=== PATIENT | male | born 1955 | race Caucasian/White ===

== ENCOUNTER 2017-08-11 20:52 | Emergency (ER) | payer OTHER ==
[~2017-08-11] VITALS: Ht 172.7 cm; Wt 49.9 kg
[~2017-08-11 20:52] MED LIST: BACL20TA PO; DIAZ5TAB PO; FENT1PAT3 TOP; HYDR-548 PO; TRAM50TA2 PO
[2017-08-11] MEDS ORDERED: SULFAMETH/TRIMETH 800/160 MG TABLET PO ONE (21:45)
[2017-08-11] MEDS ORDERED: CLINDAMYCIN HCL 150 MG CAPSULE PO ONE (21:45)
--- NOTE | 2017-08-11 21:47 | NUR ---
Patient discharged to home in stable conditon. Written and verbal after care instructions given. Patient verbalizes understanding of instructions.
[2017-08-11] MEDS ORDERED: CLINDAMYCIN HCL 300 MG CAPSULE ONE (21:57)
[2017-08-11] MEDS ORDERED: SULFAMETH/TRIMETH 800/160 MG TABLET ONE (21:57)
== END 2017-08-11 21:49 | disposition home or self-care (01) ==
LOC: ER 20:53
DX: L03.115 Cellulitis of right lower limb (principal); G82.50 Quadriplegia, unspecified
CPT/HCPCS: A4663

== ENCOUNTER 2018-10-21 14:05 | Emergency (ER) | payer OTHER ==
[~2018-10-21] VITALS: Ht 172.7 cm; Wt 50.8 kg
[~2018-10-21 14:05] MED LIST changes: -DIAZ5TAB PO; +HYDR-4354 PO; -HYDR-548 PO; -TRAM50TA2 PO
--- NOTE | 2018-10-21 15:26 | NUR ---
PT WAS EVALUATED BY DR FORTE. PT WAS D/C'd TO HOMED/C INSTRUCTIONS GIVEN TO THE PT.
[2018-10-21 15:27] VITALS: BP 136/75
== END 2018-10-21 15:28 | disposition home or self-care (01) ==
LOC: ER 14:05
DX: L89.309 Pressure ulcer of unspecified buttock, unspecified stage (principal); Z79.891 Long term (current) use of opiate analgesic; Z79.899 Other long term (current) drug therapy
CPT/HCPCS: A4663

== ENCOUNTER 2018-11-11 22:30 | Emergency (ER) | payer OTHER ==
[~2018-11-11] VITALS: Ht 172.7 cm; Wt 52.2 kg
--- NOTE | 2018-11-11 22:47 | NUR ---
Patient non-ambulatory, on w/c. AAOX4. Speech clear, speaks in complete sentences. Patient came in with c/o swelling in the LLE x 5 days s/p having a superficial break in the skin proximal to the ankle. Resp even and unlabored. Mild swelling and redness of LLE, all pulses palpable. No GI/ distress noted. Patient in bed at lowest position, side rails upx2, call light within reach. Fall precautions implemented per protocol.
[2018-11-11] MEDS ORDERED: NEOMY/BACITRA/POLYMYXIN B OINT UD PACKET TP ONE ×2 (23:27→23:30)
[2018-11-11] MEDS ORDERED: CLINDAMYCIN HCL 150 MG CAPSULE PO ONE (23:30)
[2018-11-11] MEDS ORDERED: CLINDAMYCIN HCL 150 MG CAPSULE ONE (23:37)
--- NOTE | 2018-11-11 23:40 | NUR ---
Patient discharged to home in stable conditon. Written and verbal after care instructions given. Patient verbalizes understanding of instructions. Patient wheeled self out via w/c.
[2018-11-11 23:41] VITALS: BP 110/70
== END 2018-11-11 23:42 | disposition home or self-care (01) ==
LOC: ER 22:30
DX: L03.115 Cellulitis of right lower limb (principal); Z79.891 Long term (current) use of opiate analgesic; Z79.899 Other long term (current) drug therapy
CPT/HCPCS: A4663

== ENCOUNTER 2019-05-23 16:08 | Emergency (ER) | payer OTHER ==
[~2019-05-23] VITALS: Ht 172.7 cm; Wt 49.9 kg
[2019-05-23] MEDS ORDERED: MUPIROCIN 2% OINT 22 GM TUBE TP ONE (17:00)
--- NOTE | 2019-05-23 17:00 | NUR ---
DRESSING APPLIED TO ISCHIAL DECUB.
[2019-05-23] MEDS ORDERED: MUPIROCIN 2% OINT 22 GM TUBE ONE (17:01)
--- NOTE | 2019-05-23 17:17 | NUR ---
Patient discharged to home in stable conditon. Written and verbal after care instructions given. Patient verbalizes understanding of instructions.
== END 2019-05-23 17:23 | disposition home or self-care (01) ==
LOC: ER 16:15
DX: L89.319 Pressure ulcer of right buttock, unspecified stage (principal); Z79.899 Other long term (current) drug therapy
CPT/HCPCS: A4663

== ENCOUNTER 2020-02-22 18:29 | Emergency (ER) | payer OTHER ==
[~2020-02-22] VITALS: Ht 172.7 cm; Wt 49.9 kg
--- NOTE | 2020-02-22 19:00 | NUR ---
Urine collected and sent to lab at this time
[2020-02-22 19:04] LABS: *BILIRUBIN,URIN NEGATIVE (NEGATIVE); *BLOOD, URINE 3+ (NEGATIVE); *CLARITY,URINE CLOUDY (CLEAR); *COLOR,URINE Brown (YELLOW); *KETONES,URINE NEGATIVE (NEGATIVE); *UROBILINOGEN,URINE 0.2 E.U./dl (NORMAL); LEUKOCYTE ESTERASE ,URINE 2+ (NEGATIVE); NITRITE, URINE NEGATIVE (NEGATIVE); PH,URINE 6.5 (5.0-8.0); UGLUCOSE NEGATIVE (NEGATIVE)
--- NOTE | 2020-02-22 19:10 | NUR ---
patient noted assisting self to restroom at this time
[2020-02-22 19:20] LABS: BACTERIA,URINE FEW /HPF (NONE SEEN); RBC,URINE TNTC /HPF (0-3); SQUAMOUS EPITHELIAL CELL,UR FEW /HPF (NONE SEEN)
[2020-02-22] MEDS ORDERED: CEphaleXIN 500 MG CAPSULE ONE (19:38)
--- NOTE | 2020-02-22 19:40 | NUR ---
Patient discharged to home in stable condition. Patient wheeled himself out in stable condition. Written and verbal after care instructions given. Rx given. No signs of distress. Patient verbalizes understanding of instructions. Stressed follow up or return to ER for worsening s/s.
[2020-02-22 19:43] VITALS: BP 110/65
[2020-02-22] MEDS ORDERED: CEphaleXIN 500 MG CAPSULE PO ONE (19:45)
== END 2020-02-22 19:40 | disposition home or self-care (01) ==
LOC: ER 18:29
DX: R31.9 Hematuria, unspecified (principal); G82.50 Quadriplegia, unspecified; S14.159S Other incomplete lesion at unspecified level of cervical spinal cord, sequela; X58.XXXS Exposure to other specified factors, sequela; Z87.442 Personal history of urinary calculi
CPT/HCPCS: 87086; A4663

== ENCOUNTER 2020-03-04 16:47 | Emergency (ER) | payer OTHER ==
[~2020-03-04] VITALS: Ht 172.7 cm; Wt 54.4 kg
--- NOTE | 2020-03-04 17:02 | NUR ---
PT IS IN ROOM #2B. DR KC EVALUATED THE PT.
[2020-03-04] MEDS ORDERED: IV NORMAL SALINE 1000 ML BAG IV ONE (17:15)
[2020-03-04 17:18] LABS: *BLOOD, URINE 3+ (NEGATIVE); *CLARITY,URINE TURBID (CLEAR); *COLOR,URINE Brown (YELLOW); *KETONES,URINE NEGATIVE (NEGATIVE); LEUKOCYTE ESTERASE ,URINE 1+ (NEGATIVE); NITRITE, URINE NEGATIVE (NEGATIVE); UGLUCOSE NEGATIVE (NEGATIVE)
[2020-03-04 17:26] LABS: *BILIRUBIN,URIN 1+ (NEGATIVE)
[2020-03-04 17:28] LABS: BASOPHILS % (AUTO) 0.5 % (0.0-2.0); EOSINOPHILS # (AUTO) 0.5 K/uL (0.0-0.7); EOSINOPHILS % (AUTO) 5.7 % (0.0-7.0); HEMATOCRIT 35.3 % (36.7-47.1); HEMOGLOBIN 11.4 g/dL (12.5-16.3); LYMPHOCYTES # (AUTO) 1.6 K/uL (20.0-40.0); LYMPHOCYTES % (AUTO) 20.1 % (20.5-51.5); MEAN CORPUSCULAR HEMOGLOBIN 26.8 uug (23.8-33.4); MEAN CORPUSCULAR HGB CONC 32 g/dL (32.5-36.3); MEAN CORPUSCULAR VOLUME 83.1 fL (73.0-96.2); MONOCYTES % (AUTO) 12.3 % (0.0-11.0); NEUTROPHILS # (AUTO) 4.8 K/uL (1.8-8.9); NEUTROPHILS % (AUTO) 61.4 % (38.5-71.5); PLATELET COUNT (AUTO) 342 K/uL (152-348); RED BLOOD CELL COUNT(AUTO) 4.24 MIL/uL (4.06-5.63); WHITE BLOOD COUNT (AUTO) 7.9 K/uL (3.6-10.2)
[2020-03-04 17:33] LABS: CREATININE 0.7 mg/dL (0.6-1.3); POTASSIUM 4.2 mmol/L (3.5-5.1)
[2020-03-04 17:39] LABS: BILIRUBIN,DIRECT 0.1 mg/dL (0.0-0.2); BILIRUBIN,TOTAL 0.3 mg/dL (0.2-1.0); TOTAL PROTEIN, SERUM 7.2 g/dL (6.4-8.2)
[2020-03-04] MEDS ORDERED: NITROFURANTOIN/NITROFURAN MAC 100 MG CAPSULE PO ONE (18:30)
--- NOTE | 2020-03-04 18:32 | NUR ---
PT WAS D/C'd TO HOME. D/C INSTRUCTIONS GIVEN TO THE PT.
[2020-03-04 18:35] VITALS: BP 136/77
[2020-03-04] MEDS ORDERED: NITROFURANTOIN/NITROFURAN MAC 100 MG CAPSULE ONE (18:36)
[2020-03-04 20:45] LABS: RBC,URINE TNTC /HPF (0-3)
[2020-03-04 20:46] LABS: BACTERIA,URINE 2 /HPF (NONE SEEN)
[2020-03-04 20:47] LABS: SQUAMOUS EPITHELIAL CELL,UR FEW /HPF (NONE SEEN)
== END 2020-03-04 18:38 | disposition home or self-care (01) ==
LOC: ER 16:50
DX: T19.0XXA Foreign body in urethra, initial encounter (principal); R31.9 Hematuria, unspecified; X58.XXXA Exposure to other specified factors, initial encounter; Y93.89 Activity, other specified; Y92.89 Other specified places as the place of occurrence of the external cause; N39.0 Urinary tract infection, site not specified; D64.9 Anemia, unspecified; N17.9 Acute kidney failure, unspecified; N40.0 Benign prostatic hyperplasia without lower urinary tract symptoms; N20.0 Calculus of kidney; G82.20 Paraplegia, unspecified; T14.8XXS Other injury of unspecified body region, sequela; X58.XXXS Exposure to other specified factors, sequela
CPT/HCPCS: 36415; 83605; 83690; 85025; 87040; 87086; A4663; J7030

== ENCOUNTER 2021-12-31 14:38 | Emergency (ER) | payer OTHER ==
[~2021-12-31] VITALS: Ht 172.7 cm; Wt 50.8 kg
--- NOTE | 2021-12-31 15:04 | NUR ---
PT WAS EVALUATED BY DR RAYA. PT IS IN ROOM #1B.
[2021-12-31 15:09] LABS: *BILIRUBIN,URIN NEGATIVE (NEGATIVE); *BLOOD, URINE 2+ (NEGATIVE); *CLARITY,URINE CLOUDY (CLEAR); *COLOR,URINE YELLOW (YELLOW); *KETONES,URINE TRACE (NEGATIVE); *UROBILINOGEN,URINE 0.2 E.U./dl (NORMAL); LEUKOCYTE ESTERASE ,URINE 2+ (NEGATIVE); NITRITE, URINE POSITIVE (NEGATIVE); PH,URINE 7.5 (5.0-8.0); UGLUCOSE NEGATIVE (NEGATIVE)
[2021-12-31] MEDS ORDERED: CEPH500C2 PO ×2 (15:23→15:32)
[2021-12-31] MEDS ORDERED: CEphaleXIN 500 MG CAPSULE ONE (15:27)
[2021-12-31] MEDS ORDERED: CEphaleXIN 500 MG CAPSULE PO ONE (15:30)
--- NOTE | 2021-12-31 15:43 | NUR ---
PT WAS D/C'd TO HOME. D/C INSTRUCTIONS GIVEN TO THE PT BY DR RAYA.
[2021-12-31 15:45] VITALS: BP 128/76
[2021-12-31 18:39] LABS: BACTERIA,URINE MANY /HPF (NONE SEEN); SQUAMOUS EPITHELIAL CELL,UR FEW /HPF (NONE SEEN); WBC,URINE TNTC /HPF (0-3)
== END 2021-12-31 15:46 | disposition home or self-care (01) ==
LOC: ER 14:44
DX: N39.0 Urinary tract infection, site not specified (principal); Z87.440 Personal history of urinary (tract) infections; R00.0 Tachycardia, unspecified; Z87.442 Personal history of urinary calculi; F17.200 Nicotine dependence, unspecified, uncomplicated
CPT/HCPCS: 87077; 87086; A4663

== ENCOUNTER 2022-01-03 14:18 | Emergency (ER) | payer OTHER ==
[~2022-01-03] VITALS: Ht 172.7 cm; Wt 50.8 kg
[~2022-01-03 14:18] MED LIST changes: +CEPH500C2 PO
--- NOTE | 2022-01-03 14:36 | NUR ---
Dr Zaragoza at the bedside for MSE.
[2022-01-03] MEDS ORDERED: SULF1TAB48 PO (14:41)
[2022-01-03 14:48] VITALS: BP 127/76
--- NOTE | 2022-01-03 14:49 | NUR ---
Patient discharged to home in stable condition. Written and verbal after care instructions given. Patient verbalizes understanding of instructions. Stressed follow up or return to ER for worsening s/s.
== END 2022-01-03 14:49 | disposition home or self-care (01) ==
LOC: ER 14:18
DX: N39.0 Urinary tract infection, site not specified (principal); F17.200 Nicotine dependence, unspecified, uncomplicated; S14.109S Unspecified injury at unspecified level of cervical spinal cord, sequela; X58.XXXS Exposure to other specified factors, sequela; G82.50 Quadriplegia, unspecified
CPT/HCPCS: A4663

== ENCOUNTER 2022-01-16 15:38 | Emergency (ER) | payer OTHER ==
[~2022-01-16] VITALS: Ht 172.7 cm; Wt 50.8 kg
[~2022-01-16 15:38] MED LIST changes: +SULF1TAB48 PO
--- NOTE | 2022-01-16 15:45 | NUR ---
Dr Martin at the bedside for MSE.
[2022-01-16 15:59] LABS: *BILIRUBIN,URIN NEGATIVE (NEGATIVE); *BLOOD, URINE 2+ (NEGATIVE); *CLARITY,URINE CLOUDY (CLEAR); *COLOR,URINE YELLOW (YELLOW); *KETONES,URINE NEGATIVE (NEGATIVE); *UROBILINOGEN,URINE 0.2 E.U./dl (NORMAL); LEUKOCYTE ESTERASE ,URINE 3+ (NEGATIVE); NITRITE, URINE POSITIVE (NEGATIVE); UGLUCOSE NEGATIVE (NEGATIVE)
[2022-01-16] MEDS ORDERED: FOSFOMYCIN TROMETHAMINE 3 GM PACKET ONE (16:42)
[2022-01-16] MEDS ORDERED: FOSFOMYCIN TROMETHAMINE 3 GM PACKET PO ONE (16:45)
[2022-01-16 16:49] VITALS: BP 111/76
[2022-01-16 20:30] LABS: BACTERIA,URINE MANY /HPF (NONE SEEN); SQUAMOUS EPITHELIAL CELL,UR FEW /HPF (NONE SEEN)
== END 2022-01-16 16:54 | disposition home or self-care (01) ==
LOC: ER 15:38
DX: N39.0 Urinary tract infection, site not specified (principal); B96.89 Other specified bacterial agents as the cause of diseases classified elsewhere; G82.20 Paraplegia, unspecified; T14.90XS Injury, unspecified, sequela; X58.XXXS Exposure to other specified factors, sequela; Z87.440 Personal history of urinary (tract) infections; Z87.442 Personal history of urinary calculi; F17.200 Nicotine dependence, unspecified, uncomplicated
CPT/HCPCS: 87077; 87086; A4663

== ENCOUNTER 2022-01-21 04:39 | Emergency (ER) | payer OTHER ==
[~2022-01-21] VITALS: Ht 172.7 cm; Wt 49.9 kg
--- NOTE | 2022-01-21 04:55 | NUR ---
pt came in to the er room 5a states he has a uti. Dr. Burciaga at bedside for MSE.
[2022-01-21 05:24] LABS: *BILIRUBIN,URIN NEGATIVE (NEGATIVE); *CLARITY,URINE SLIGHTLY CLOUDY (CLEAR); *COLOR,URINE YELLOW (YELLOW); *KETONES,URINE NEGATIVE (NEGATIVE); *UROBILINOGEN,URINE 0.2 E.U./dl (NORMAL); LEUKOCYTE ESTERASE ,URINE 3+ (NEGATIVE); NITRITE, URINE POSITIVE (NEGATIVE); PH,URINE 7.5 (5.0-8.0); UGLUCOSE NEGATIVE (NEGATIVE)
[2022-01-21 05:29] LABS: *BLOOD, URINE TRACE (NEGATIVE)
[2022-01-21] MEDS ORDERED: NITR-84 PO (05:37)
[2022-01-21] MEDS ORDERED: GENTAMICIN SULFATE 80 MG/2 ML VIAL IM ONE (05:45)
[2022-01-21] MEDS ORDERED: GENTAMICIN SULFATE 80 MG/2 ML VIAL ONE (05:47)
--- NOTE | 2022-01-21 05:56 | NUR ---
Patient discharged to home in stable condition. Written and verbal after care instructions given. Patient verbalizes understanding of instructions. Stressed follow up or return to ER for worsening s/s. pt came in to the er via w/c, he states he has a w/c accesible van and drives himself.
[2022-01-21 05:57] VITALS: BP 135/85
[2022-01-21 10:30] LABS: BACTERIA,URINE MANY /HPF (NONE SEEN); RBC,URINE 0-3 /HPF (0-3); SQUAMOUS EPITHELIAL CELL,UR FEW /HPF (NONE SEEN)
[2022-01-21 10:34] LABS: CALCIUM PHOSPHATE CRYSTALS,UR MODERATE /HPF (NONE SEEN); MUCUS,URINE MANY /LPF (0-FEW)
== END 2022-01-21 05:57 | disposition home or self-care (01) ==
LOC: ER 04:49
DX: N30.90 Cystitis, unspecified without hematuria (principal); Z87.440 Personal history of urinary (tract) infections; G82.50 Quadriplegia, unspecified; S14.109S Unspecified injury at unspecified level of cervical spinal cord, sequela; X58.XXXS Exposure to other specified factors, sequela; M81.0 Age-related osteoporosis without current pathological fracture; Z87.442 Personal history of urinary calculi; Z87.898 Personal history of other specified conditions; F17.200 Nicotine dependence, unspecified, uncomplicated
CPT/HCPCS: 81001; 87086; 96372; 99283; J1580; 87077; A4663

== ENCOUNTER 2022-02-02 04:15 | Emergency (ER) | payer OTHER ==
[~2022-02-02] VITALS: Ht 170.2 cm; Wt 49.9 kg
[~2022-02-02 04:15] MED LIST changes: +NITR-84 PO
[2022-02-02 04:51] LABS: *BILIRUBIN,URIN NEGATIVE (NEGATIVE); *BLOOD, URINE 1+ (NEGATIVE); *CLARITY,URINE CLOUDY (CLEAR); *COLOR,URINE YELLOW (YELLOW); *KETONES,URINE NEGATIVE (NEGATIVE); *UROBILINOGEN,URINE 0.2 E.U./dl (NORMAL); LEUKOCYTE ESTERASE ,URINE 2+ (NEGATIVE); NITRITE, URINE POSITIVE (NEGATIVE); UGLUCOSE NEGATIVE (NEGATIVE)
[2022-02-02 04:59] LABS: BACTERIA,URINE MANY /HPF (NONE SEEN); SQUAMOUS EPITHELIAL CELL,UR FEW /HPF (NONE SEEN); WBC,URINE TNTC /HPF (0-3)
[2022-02-02 05:28] LABS: HEMATOCRIT 35.6 % (36.7-47.1); MEAN CORPUSCULAR HEMOGLOBIN 27.4 uug (23.8-33.4); MEAN CORPUSCULAR VOLUME 82.8 fL (73.0-96.2); PLATELET COUNT (AUTO) 205 K/uL (152-348)
[2022-02-02 05:34] LABS: CREATININE 0.7 mg/dL (0.6-1.3); POTASSIUM 4.5 mmol/L (3.5-5.1)
[2022-02-02 05:40] LABS: BILIRUBIN,DIRECT 0.1 mg/dL (0.0-0.2); BILIRUBIN,TOTAL 0.4 mg/dL (0.2-1.0); TOTAL PROTEIN, SERUM 7.4 g/dL (6.4-8.2)
[2022-02-02] MEDS ORDERED: SULF1TAB48 PO (06:35)
[2022-02-02 06:38] VITALS: BP 136/84
== END 2022-02-02 06:39 | disposition home or self-care (01) ==
LOC: ER 04:25
DX: N39.0 Urinary tract infection, site not specified (principal); B96.4 Proteus (mirabilis) (morganii) as the cause of diseases classified elsewhere; G82.50 Quadriplegia, unspecified; Z87.440 Personal history of urinary (tract) infections; R03.0 Elevated blood-pressure reading, without diagnosis of hypertension
CPT/HCPCS: 36415; 83605; 85025; 87077; 87086; A4663

== ENCOUNTER 2023-03-03 15:44 | Inpatient (IN) | payer OTHER ==
[~2023-03-03] VITALS: Ht 165.1 cm; Wt 49.9 kg
[2023-03-03] MEDS ORDERED: PIPERACILLIN/TAZOBACTAM/D5W 50 ML IV ONE (16:07)
[2023-03-03] MEDS ORDERED: VANCOMYCIN IV 200 ML ONE (16:07)
[2023-03-03] MEDS ORDERED: PIPERACILLIN SODIUM/TAZOBACTAM 3.375 G in IV DEXTROSE 5% 50 ML IV ONE (16:15)
[2023-03-03] MEDS ORDERED: IV NORMAL SALINE 1000 ML BAG IV ONE (16:15)
[2023-03-03] MEDS ORDERED: VANCOMYCIN IV 1,000 MG in IV DEXTROSE 5% 250 ML IV ONE (16:15)
[2023-03-03 16:23] LABS: HEMATOCRIT 33.9 % (36.7-47.1); PLATELET COUNT (AUTO) 207 K/uL (152-348)
[2023-03-03 16:32] LABS: CREATININE 0.7 mg/dL (0.6-1.3); POTASSIUM 4.1 mmol/L (3.5-5.1)
[2023-03-03 16:37] LABS: BILIRUBIN,DIRECT 0.1 mg/dL (0.0-0.2); BILIRUBIN,TOTAL 0.3 mg/dL (0.2-1.0); TOTAL PROTEIN, SERUM 6.7 g/dL (6.4-8.2)
[2023-03-03] MEDS ORDERED: ACETAMINOPHEN 325 MG TABLET PO PRN (18:30)
[2023-03-03] MEDS ORDERED: ONDANSETRON 4 MG/2 ML VIAL IV PRN (18:30)
[2023-03-03] MEDS ORDERED: MAGNESIUM HYDROXIDE 30 ML LIQUID UDC PO PRN (18:30)
[2023-03-03] MEDS ORDERED: HYDROCODONE/APAP 10-325 MG TABLET PO PRN (18:30)
[2023-03-03] MEDS ORDERED: REMEDY ESSENTIAL ZINC PASTE 113 GM TP PRN (18:30)
[2023-03-03] MEDS ORDERED: CEFTRIAXONE 1 G VIAL ONE (21:09)
[2023-03-03] MEDS: IV 1/2NS 1000 ML 1,000 ML IV PRN (21:23)
[2023-03-03] MEDS: FENTANYL 75 MCG/HR PATCH EACH TD SCH (21:33)
[2023-03-03] MEDS: CEFTRIAXONE 2 G in IV DEXTROSE 5% 100 ML IV SCH (21:38)
[2023-03-03] MEDS: BACLOFEN 20 MG TABLET PO SCH (21:48)
[2023-03-03] MEDS: ENOXAPARIN SODIUM 40 MG/0.4 ML DISP.SYRIN SQ SCH (21:52)
[2023-03-03 21:58] VITALS: BP 122/83; TEMP 98.4; O2SAT 97
[2023-03-04] MEDS ORDERED: VANCOMYCIN IV 200 ML ONE (03:28)
[2023-03-04 04:00] VITALS: BP 91/41; TEMP 98; O2SAT 96
[2023-03-04] MEDS ORDERED: VANCOMYCIN IV 1,000 MG in IV DEXTROSE 5% 250 ML IV ONE (05:00)
[2023-03-04 07:07] LABS: HEMATOCRIT 30.3 % (36.7-47.1); MEAN CORPUSCULAR HEMOGLOBIN 27.3 uug (23.8-33.4); MEAN CORPUSCULAR VOLUME 83.5 fL (73.0-96.2); PLATELET COUNT (AUTO) 182 K/uL (152-348)
[2023-03-04 07:33] LABS: CREATININE 0.7 mg/dL (0.6-1.3); MAGNESIUM 1.7 mg/dL (1.8-2.4); PHOSPHOROUS 3.4 mg/dL (2.5-4.9); POTASSIUM 4.3 mmol/L (3.5-5.1)
[2023-03-04] MEDS: BACLOFEN 20 MG TABLET PO SCH ×4 (08:07→20:44)
[2023-03-04] MEDS: PANTOPRAZOLE SODIUM 40 MG VIAL IV SCH (08:13)
[2023-03-04 10:29] LABS: EOSINOPHILS % (MANUAL) 7 % (0-8); LYMPHOCYTES % (MANUAL) 19 % (20-40); MONOCYTES % (MANUAL) 11 % (2-10); NEUTROPHILS % (MANUAL) 63 % (42-75)
[2023-03-04 11:42] VITALS: BP 93/59; TEMP 98; O2SAT 96
[2023-03-04] MEDS: MAGNESIUM OXIDE 400 MG TABLET PO SCH ×2 (12:55→16:20)
[2023-03-04] MEDS: IV 1/2NS 1000 ML 1,000 ML IV PRN (15:26)
[2023-03-04 16:36] VITALS: BP 89/46; TEMP 98.2; O2SAT 97
[2023-03-04 20:00] VITALS: BP 106/50; TEMP 98; O2SAT 95
[2023-03-04] MEDS: CEFTRIAXONE 2 G in IV DEXTROSE 5% 100 ML IV SCH (20:45)
[2023-03-04] MEDS: ENOXAPARIN SODIUM 40 MG/0.4 ML DISP.SYRIN SQ SCH (20:45)
[2023-03-04] MEDS: VANCOMYCIN IV 750 MG in IV DEXTROSE 5% 250 ML IV SCH (23:05)
[2023-03-05 04:00] VITALS: BP 122/50; TEMP 98.4; O2SAT 98
[2023-03-05] MEDS: IV 1/2NS 1000 ML 1,000 ML IV PRN (07:11)
[2023-03-05 07:40] LABS: HEMATOCRIT 30.9 % (36.7-47.1); MEAN CORPUSCULAR HEMOGLOBIN 27.2 uug (23.8-33.4); MEAN CORPUSCULAR VOLUME 83.3 fL (73.0-96.2); PLATELET COUNT (AUTO) 185 K/uL (152-348)
[2023-03-05 07:55] LABS: LYMPHOCYTES % (MANUAL) 0 % (20-40); NEUTROPHILS % (MANUAL) 0 % (42-75)
[2023-03-05 07:59] LABS: IRON, SERUM 63 ug/dL (50-175)
[2023-03-05] MEDS: BACLOFEN 20 MG TABLET PO SCH ×4 (08:02→21:14)
[2023-03-05 08:03] LABS: THYROID STIMULATING HORMONE 1.749 mIU/mL (0.358-3.740)
[2023-03-05] MEDS: PANTOPRAZOLE SODIUM 40 MG VIAL IV SCH (08:05)
[2023-03-05 08:09] LABS: ALANINE AMINOTRANSFERASE 14 U/L (16-63); ALKALINE PHOSPHATASE 52 U/L (50-136); ASPARTATE AMINOTRANSFERASE 18 U/L (15-37); BILIRUBIN,TOTAL 0.2 mg/dL (0.2-1.0); CARBON DIOXIDE 30 mmol/L (21-32); CHLORIDE 107 mmol/L (98-107); CREATININE 0.6 mg/dL (0.6-1.3); FERRITIN 136 ng/mL (26-388); MAGNESIUM 1.9 mg/dL (1.8-2.4); POTASSIUM 4.1 mmol/L (3.5-5.1); TOTAL PROTEIN, SERUM 5.7 g/dL (6.4-8.2); UREA NITROGEN, BLOOD 13 mg/dL (7-18)
[2023-03-05 11:31] VITALS: BP 109/79; TEMP 98.6; O2SAT 96
[2023-03-05 15:58] VITALS: BP 91/40; TEMP 98.1; O2SAT 96
[2023-03-05] MEDS: VANCOMYCIN IV 750 MG in IV DEXTROSE 5% 250 ML IV SCH (16:47)
[2023-03-05 20:45] VITALS: BP 108/62; TEMP 98.2; O2SAT 99
[2023-03-05] MEDS: CEFTRIAXONE 2 G in IV DEXTROSE 5% 100 ML IV SCH (21:14)
[2023-03-05] MEDS: ENOXAPARIN SODIUM 40 MG/0.4 ML DISP.SYRIN SQ SCH (21:25)
[2023-03-05] MEDS ORDERED: HYDROCORTISONE 1% CREAM 30 GM TUBE TP ONE (21:57)
[2023-03-05] MEDS: HYDROCORTISONE 1% CREAM 30 GM TUBE TP SCH (22:46)
[2023-03-06] MEDS: IV 1/2NS 1000 ML 1,000 ML IV PRN (04:28)
[2023-03-06] MEDS: PANTOPRAZOLE SODIUM 40 MG TABLET.DR PO SCH (06:04)
[2023-03-06] MEDS: BACLOFEN 20 MG TABLET PO SCH ×4 (08:02→20:29)
[2023-03-06] MEDS: HYDROCORTISONE 1% CREAM 30 GM TUBE TP SCH ×3 (08:02→16:33)
[2023-03-06] MEDS: FENTANYL 75 MCG/HR PATCH EACH TD SCH (08:24)
[2023-03-06] MEDS: VANCOMYCIN IV 750 MG in IV DEXTROSE 5% 250 ML IV SCH ×2 (11:08→23:29)
[2023-03-06 12:00] VITALS: BP 103/63; TEMP 98.2; O2SAT 97
[2023-03-06 16:00] VITALS: BP 101/59; TEMP 98; O2SAT 95
[2023-03-06 20:00] VITALS: BP 133/69; TEMP 98.7; O2SAT 99
[2023-03-06] MEDS: CEFTRIAXONE 2 G in IV DEXTROSE 5% 100 ML IV SCH (20:29)
[2023-03-06] MEDS: ENOXAPARIN SODIUM 40 MG/0.4 ML DISP.SYRIN SQ SCH (20:30)
[2023-03-07] MEDS: IV 1/2NS 1000 ML 1,000 ML IV PRN (01:56)
[2023-03-07] MEDS: PANTOPRAZOLE SODIUM 40 MG TABLET.DR PO SCH (06:00)
[2023-03-07 06:30] VITALS: BP 100/40; TEMP 98.7; O2SAT 94
[2023-03-07] MEDS: HYDROCORTISONE 1% CREAM 30 GM TUBE TP SCH (09:22)
[2023-03-07] MEDS: BACLOFEN 20 MG TABLET PO SCH (09:23)
[2023-03-07] MEDS ORDERED: DOXY-226 PO (09:55)
[2023-03-07] MEDS: VANCOMYCIN IV 750 MG in IV DEXTROSE 5% 250 ML IV SCH (10:46)
== END 2023-03-07 12:20 | disposition home or self-care (01) | DRG 602 ==
LOC: ER 15:44 → MEDSURG3 20:25
PROVIDERS: ADMIT Nurse Practitioner Family; ATTEND Nurse Practitioner Family
DX: L03.115 Cellulitis of right lower limb (principal); R53.2 Functional quadriplegia; S12.500S Unspecified displaced fracture of sixth cervical vertebra, sequela; S12.600S Unspecified displaced fracture of seventh cervical vertebra, sequela; S14.106S Unspecified injury at C6 level of cervical spinal cord, sequela; X58.XXXS Exposure to other specified factors, sequela; D64.9 Anemia, unspecified; R79.89 Other specified abnormal findings of blood chemistry; Z87.440 Personal history of urinary (tract) infections; Z72.0 Tobacco use; Z99.3 Dependence on wheelchair; Z98.1 Arthrodesis status; R23.8 Other skin changes
CPT/HCPCS: 36415; 70030-TC; 71045; 83550; 83605; 83735; 84100; 84443; 85025; 85730; 87040; 93005; C9113; G0378; J0696; J1650; J2543; J3370; J7040; J7050

== ENCOUNTER 2025-05-06 07:11 | Emergency (ER) | payer OTHER ==
[~2025-05-06] VITALS: Ht 172.7 cm; Wt 49.4 kg
[~2025-05-06 07:11] MED LIST changes: -CEPH500C2 PO; +CIPR500T5 PO; +DOXY-226 PO; -NITR-84 PO
[2025-05-06] MEDS ORDERED: KETOROLAC TROMETHAMINE 30 MG INJ ONE (07:41)
[2025-05-06] MEDS ORDERED: diphenhydrAMINE 50 MG/1 ML VIAL ONE ×2 (07:41→13:23)
[2025-05-06] MEDS ORDERED: HYDROMORPHONE 2 MG/1 ML DISP.SYRIN ONE ×2 (07:41→13:22)
[2025-05-06] MEDS ORDERED: ONDANSETRON 4 MG/2 ML VIAL ONE (07:41)
[2025-05-06] MEDS: ONDANSETRON 4 MG/2 ML VIAL IV ONE (07:50)
[2025-05-06] MEDS: HYDROMORPHONE 1 MG/1 ML DISP.SYRIN IV ONE ×2 (07:50→13:24)
[2025-05-06] MEDS: KETOROLAC TROMETHAMINE 30 MG INJ IVP ONE (07:50)
[2025-05-06] MEDS: diphenhydrAMINE 50 MG/1 ML VIAL IV ONE ×2 (07:50→13:24)
[2025-05-06] MEDS: IV NS 1000 ML 1,000 ML IV ONE (07:50)
[2025-05-06 07:56] LABS: PLATELET COUNT (AUTO) 164 K/uL (152-348); RED BLOOD CELL COUNT(AUTO) 3.48 MIL/uL (4.06-5.63); RED CELL DISTRIBUTION WIDTH 14.4 % (12.1-16.2); WHITE BLOOD COUNT (AUTO) 10.1 K/uL (3.6-10.2)
[2025-05-06 08:07] LABS: CREATININE 0.9 mg/dL (0.6-1.3); SODIUM SERUM 139 mmol/L (136-145); UREA NITROGEN, BLOOD 21 mg/dL (7-18)
[2025-05-06 08:25] LABS: LACTIC ACID 2.7 mmol/L (0.4-2.0)
[2025-05-06 09:41] LABS: *BILIRUBIN,URIN NEGATIVE (NEGATIVE); *BLOOD, URINE 3+ (NEGATIVE); *CLARITY,URINE SLIGHTLY CLOUDY (CLEAR); *COLOR,URINE YELLOW (YELLOW); *KETONES,URINE 1+ (NEGATIVE); *PROTEIN,URINE 1+ (NEGATIVE); *UROBILINOGEN,URINE 0.2 E.U./dl (NORMAL); LEUKOCYTE ESTERASE ,URINE 1+ (NEGATIVE); NITRITE, URINE POSITIVE (NEGATIVE); UGLUCOSE NEGATIVE (NEGATIVE)
[2025-05-06 10:08] LABS: URINE AMORPHOUS URATE MANY /HPF
[2025-05-06 12:53] VITALS: BP 102/59; O2SAT 94
== END 2025-05-06 16:07 | disposition short-term general hospital (02) ==
LOC: ER 07:11
DX: N13.6 Pyonephrosis (principal); F17.200 Nicotine dependence, unspecified, uncomplicated; K59.00 Constipation, unspecified; R07.9 Chest pain, unspecified; Z87.440 Personal history of urinary (tract) infections; Z87.442 Personal history of urinary calculi; Z88.7 Allergy status to serum and vaccine; Z98.890 Other specified postprocedural states; Z99.3 Dependence on wheelchair; Z87.2 Personal history of diseases of the skin and subcutaneous tissue; Z60.2 Problems related to living alone
CPT/HCPCS: 99285; 96365; 96375; 96361; 80048; 81001; 82247; 82248; 85025; 87086; 36415; 93005; 96376; 83605 ×2; J1885; J0696; J1200 ×2; J2405; J1171 ×2; J7040 ×2; A4606; A4663